=== PATIENT | male | born 1960 | race Caucasian/White ===

== ENCOUNTER 2019-09-20 05:04 | Emergency (ER) | payer BC, SELFPAY ==
[2019-09-20 05:10] VITALS: BP 142/69; PULSE 58; RESP 14; TEMP 36.6; O2SAT 98; BMI 32.5
--- NOTE | 2019-09-20 05:17 | ED.BACK ---
HPI - Back Pain/Injury General Chief Complaint: Back Pain/Injury Stated Complaint: Back pain Time Seen by Provider: 09/20/19 05:05 Source: patient and EMS Mode of arrival: EMS Limitations: no limitations History of Present Illness HPI Narrative: 59M non smoker with history of prostate CA presents by EMS for evaluation of severe right lumbar pain with radiation down his right leg for the past few days. He denies any traumatic injury but states it seems to have started after working in his garden. His pain is severe and started his lumbar region and radiates down his leg as stated. He has no fever or chills. He denies any numbness, tingling or weakness. He denies any problems controlling bowel or bladder. He denies any foot drop. He states he has been taking Tylenol and Motrin without any help, he denies any history of the same. He states it came on out of nowhere. He denies any syncope or lightheadedness. He denies any changes in his bowels. MD Complaint: back pain Onset (ago): day(s) Duration: constant Similar Symptoms Previously: No Location: lumbar spine and right lower back Severity: severe Quality: burning, sharp and stabbing Radiation: right leg Relieving factors: none Exacerbating factors: movement Associated symptoms: denies other symptoms Related Data Previous Rx's Medication Instructions Recorded diazepam [Valium] 5 mg PO BID-QID PRN #10 tab 09/20/19 hydrocodone-acetaminophen 1 tab PO Q4-6H PRN #10 tab 09/20/19 ketorolac 10 mg PO Q6H PRN #14 tab 09/20/19 lidocaine [Lidoderm] 1 patch TOP DAILY #15 each 09/20/19 prednisone See Rx Instructions .ROUTE 09/20/19 .COMPLEX #30 tab Allergies Allergy/AdvReac Type Severity Reaction Status Date / Time Sulfa (Sulfonamide Allergy Unknown Verified 09/20/19 05:19 Antibiotics) Review of Systems Constitutional Constitutional: Denies chills, Denies fatigue, Denies fever(s), Denies frequent falls, Denies lethargy and Denies weakness Eyes Eyes: Denies change in vision, Denies eye discharge, Denies irritation and Denies loss of vision ENT Ears, Nose, Mouth, and Throat: Denies change in voice, Denies dizziness, Denies neck pain, Denies sore throat and Denies throat swelling Cardiovascular Cardiovascular: Denies chest pain, Denies irregular heart rhythm, Denies lightheadedness, Denies palpitations, Denies dyspnea, Denies dyspnea on exertion and Denies orthopnea Respiratory Respiratory: Denies cough, Denies dyspnea, Denies dyspnea on exertion and Denies wheezing Gastrointestinal Gastrointestinal: Denies abdominal pain, Denies change in bowel habits, Denies diarrhea, Denies nausea and Denies vomiting Genitourinary Genitourinary: Denies hematuria, Denies flank pain, Denies urinary incontinence and Denies urinary urgency Musculoskeletal Musculoskeletal: Reports back pain, Denies muscle weakness, Denies neck pain, Denies numbness and Denies tingling Integumentary/Breasts Skin/Breast: Denies pruritus, Denies erythema, Denies rash and Denies wounds Neurologic Neurologic: Denies behavioral changes, Denies confusion, Denies dizziness, Denies frequent falls, Denies loss of vision, Denies numbness, Denies tingling and Denies weakness Psychiatric Psychiatric: Denies anxiety, Denies behavioral changes, Denies confusion, Denies depression, Denies homicidal ideation and Denies suicidal ideation Endocrine Endocrine: Denies fatigue, Denies flushing and Denies palpitations Hematologic/Lymphatic Hematologic/Lymphatic: Denies easy bruising Allergic/Immunologic Allergic/Immunologic: Denies urticaria, Denies throat swelling and Denies wheezing Patient History Social History Smoking Status: Never smoker Smoking Status: Never smoker Exam Narrative Exam Narrative: GENERAL: [59] year old patient appears stated age. Well-nourished, well-developed patient, in mild distress. Actually appears rather comfortable while sitting still HEAD: Atraumatic. Normocephalic. EYES: Pupils equal round and reactive. Extraocular motions intact. No scleral icterus. No injection or drainage. ENT: Nose without bleeding, purulent drainage. Throat without erythema, tonsillar hypertrophy or exudate. Airway patent. NECK: Trachea midline. Non tender CARDIOVASCULAR: Regular rate and rhythm without murmurs, gallops, or rubs. RESPIRATORY: Clear to auscultation. Breath sounds equal bilaterally. No wheezes, rales, or rhonchi. GASTROINTESTINAL: Abdomen soft, non-tender, nondistended. EXTREMITIES: No edema or joint tenderness. BACK: No midline tenderness, step-offs, warmth, redness or swelling or. Patient is tender to palpation in his right peer form is. There is no saddle anesthesia. Bilateral patellar reflexes are 2+. Muscle strength 5/5. Sensation and pulses intact. NEURO: AOx3. SKIN: No rash or erythema of visible areas Initial Vital Signs Initial Vital Signs: Vital Signs Temperature 97.8 F 09/20/19 05:10 Pulse Rate 58 L 09/20/19 05:10 Respiratory Rate 14 09/20/19 05:10 Blood Pressure 142/69 H 09/20/19 05:10 Pulse Oximetry 98 09/20/19 05:10 Course Course Course Narrative: patient feeling much better, ambulates through the department, here to take him home. Return precautions given, questions answered to his apparent satisfaction. Orders Ordered: Discontinued Medications Hydrocodone Bitart/Acetaminophen (Vicodin 5/325 Prepack) 1 bottle MISC SEEINSTR ONE Stop: 09/20/19 05:18 Last Admin: 09/20/19 05:33 Dose: 1 bottle Documented by: WOODROW Dexamethasone (Decadron) 10 mg IV NOW ONE Stop: 09/20/19 05:17 Last Admin: 09/20/19 05:30 Dose: 10 mg Documented by: WOODROW Diazepam (Valium) 2 mg IV NOW ONE Stop: 09/20/19 05:17 Last Admin: 09/20/19 05:32 Dose: 2 mg Documented by: WOODROW Ketorolac Tromethamine (Toradol) 15 mg IV NOW ONE Stop: 09/20/19 05:17 Last Admin: 09/20/19 05:31 Dose: 15 mg Documented by: WOODROW Lidocaine (Lidoderm) 1 each TOP NOW ONE Stop: 09/20/19 05:17 Last Admin: 09/20/19 05:32 Dose: 1 each Documented by: WOODROW MDM - Back Pain/Injury MDM Narrative Medical decision making narrative: Epidural abscess / hematoma / osteo considered but thought less likely given lack of midline pain, fever. Metastatic jovan lesion considered but thought less likely given rapid onset of symptoms and lack of midline bony pain. Cauda equina considered but thought less likely given lack of saddle anesthesia, bowel/bladder control, weakness, depressed reflexes, etc. AAA/dissection considered, but thought less likely given lack of abdominal pain, SOB, syncope Lumbar pain with sciatica / piriformis syndrome considered most likely given the above stated Discharge Plan Departure Patient Disposition: Home Clinical Impression: Strain of lumbar region Qualifiers: Encounter type: initial encounter Qualified Code(s): S39.012A - Strain of muscle, fascia and tendon of lower back, initial encounter Sciatica Qualifiers: Laterality: right Qualified Code(s): M54.31 - Sciatica, right side Discharge Date/Time: 09/20/19 07:01 Instructions: DI for Back Pain With Sciatica Activity Restrictions/Additional Instructions: *You have been diagnosed with [lumbar pain with sciatica] *What to do: *Take medications as directed *Follow up with your primary care provider in 2-3 days, call for an appointment. Let them know you were seen in the Emergency Department and that we ask that you be seen in follow up *Return to ER if you should have any new, worsening or concerning symptoms You have been prescribed narcotic medications. While on these medications you cannot drive or operate heavy machinery. Additionally you cannot sign legal documents or perform any duties such as this. Many people get constipated on narcotic medications so it would be advisable to discuss stool softeners with the pharmacist when you diamond picker your prescription. Please understand that we cannot provide further refills of narcotics or controlled substances through the ED and your pain management will need to be through your Primary Care Provider Prescriptions: New hydrocodone-acetaminophen 5-325 mg tablet 1 tab PO Q4-6H PRN (Reason: pain) Qty: 10 RF: 0 ketorolac 10 mg tablet 10 mg PO Q6H PRN (Reason: pain) Qty: 14 RF: 0 lidocaine [Lidoderm] 5 % adhesive patch,medicated 1 patch TOP DAILY Qty: 15 RF: 0 diazepam [Valium] 5 mg tablet 5 mg PO BID-QID PRN (Reason: muscle spasm) Qty: 10 RF: 0 prednisone 10 mg tablet See Rx Instructions .ROUTE .COMPLEX Qty: 30 RF: 0 Referrals: [facility] [Outside]
[2019-09-20] MEDS: DEXAMETHASONE 10 MG/ML VIAL IV (05:30)
[2019-09-20] MEDS: KETOROLAC 60 MG/2 ML VIAL 15 MG IV (05:31)
[2019-09-20] MEDS: diazePAM 10 MG/2 ML SYRINGE 2 MG IV (05:32)
[2019-09-20] MEDS: LIDOCAINE PATCH 1 EACH ADH..PATCH TOP (05:32)
[2019-09-20] MEDS: HYDROCODONE/ACET 5/325 PREPACK 1 BOTTLE MISC (05:33)
--- NOTE | 2019-09-20 06:58 | PC.NURSE ---
patient up to ambulate to restroom and back. Stead slow gate. transfered self from gurney to standing and to and from toilet without assistance.
[2019-09-20 06:59] VITALS: BP 150/82; PULSE 49; RESP 14; O2SAT 99
== END 2019-09-20 07:01 | disposition home or self-care (01) ==
PROVIDERS: Emergency Provider Emergency Medicine
DX: S39.012A Strain of muscle, fascia and tendon of lower back, initial encounter (principal); M54.31 Sciatica, right side
CPT/HCPCS: 96374; 96375; 99283; 99284; J1100; J1885; J3360

== ENCOUNTER → 2020-09-01 12:44 | Outpatient (CLI) | payer OTHER, SELFPAY ==
[2020-09-01] MEDS: COVID-19 VACC #1, MRNA(MOD) 100 MCG/0.5 ML VIAL IM (12:51)
== END ==
PROVIDERS: Visit Provider Internal Medicine
DX: Z23 Encounter for immunization (principal)
CPT/HCPCS: 0011A; 91301

== ENCOUNTER → 2020-09-29 12:31 | Outpatient (CLI) | payer OTHER, SELFPAY ==
[2020-09-29] MEDS: COVID-19 VACC #2, MRNA(MOD) 100 MCG/0.5 ML VIAL IM (12:35)
== END ==
PROVIDERS: Visit Provider Internal Medicine
DX: Z23 Encounter for immunization (principal)
CPT/HCPCS: 0012A; 91301